=== PATIENT | male | born 1985 | race Caucasian/White ===

== ENCOUNTER 2017-03-06 05:45 | Day surgery (SDC) | payer OTHER ==
[~2017-03-06] VITALS: Ht 190.5 cm; Wt 106.8 kg
[2017-03-06] VITALS (7 sets, daily range): BP systolic 110–131; BP diastolic 54–82
[~2017-03-06 05:45] MED LIST: CelecoXIB (CeleBREX) 100 MG CAP PO ONE; GABA-279 PO; HYDR-3713 PO; KETO10TAB PO; LR 1,000 ML IV ONE; PERCOCET 5MG/325MG TAB PO ONE; PREGABALIN 75 MG CAP(LYRICA) PO ONE; SUMA100T2 PO; SUMA4INJ3 SC
[2017-03-06] MEDS ORDERED: CelecoXIB (CeleBREX) 100 MG CAP PO ONE ×2 (06:00→21:00)
[2017-03-06] MEDS ORDERED: PERCOCET 5MG/325MG TAB PO ONE (06:00)
[2017-03-06] MEDS ORDERED: PREGABALIN 75 MG CAP(LYRICA) PO ONE (06:00)
[2017-03-06] MEDS ORDERED: LR 1,000 ML IV SCH ×2 (06:00→10:15)
[2017-03-06] MEDS ORDERED: NAPR1TAB86 PO (06:27)
[2017-03-06] MEDS ORDERED: BUPIVACAINE/EPIN 0.25% 30 ML VIAL As Ordered ONE (07:11)
[2017-03-06] MEDS ORDERED: THROMBIN SOLN 20,000 UNITS KIT As Ordered ONE (07:11)
[2017-03-06] MEDS ORDERED: BACITRACIN PWD 50,000 UNITS VIAL As Ordered ONE (07:11)
[2017-03-06] MEDS ORDERED: ROCURONIUM BROMIDE 50 MG/5 ML VIAL As Ordered ONE (08:01)
[2017-03-06] MEDS ORDERED: ONDANSETRON 4MG/2ML VIAL (J2405) As Ordered ONE (08:01)
[2017-03-06] MEDS ORDERED: MIDAZOLAM INJ 2 MG/2 ML VIAL (J2250) As Ordered ONE (08:01)
[2017-03-06] MEDS ORDERED: fentaNYL 250 MCG/5 ML INJECTION (J3010) As Ordered ONE (08:01)
[2017-03-06] MEDS ORDERED: PROPOFOL 200 MG/20 ML VIAL As Ordered ONE ×2 (08:01→09:26)
[2017-03-06] MEDS ORDERED: LIDOCAINE 2% INJ 100 MG/5 ML SDV (FOR ANES.) As Ordered ONE (08:01)
[2017-03-06] MEDS ORDERED: dexameTHASONE 4 MG/ML 1ML VIAL (J1100) As Ordered ONE (08:01)
[2017-03-06] MEDS ORDERED: NEOSTIGMINE 1MG/ML 5 ML SYRINGE (J2710) As Ordered ONE (08:11)
[2017-03-06] MEDS ORDERED: GLYCOPYRROLATE INJ 0.2 MG/ML 2 ML VIAL As Ordered ONE (08:11)
[2017-03-06] MEDS ORDERED: PHENYLephrine HCL 500 MCG/5 ML (100MCG/ML) SYRINGE (J2370) As Ordered ONE (08:34)
--- NOTE | 2017-03-06 09:17 | REP ---
LUMBAR SPINE, ONE VIEW: HISTORY: Disc herniation. A single portable lateral radiograph was obtained. A metal probe is present overlying the neural arch at the L4-5 level. Signed by Guru Mcgowan MD 03/06/2017 01:18 P
[2017-03-06] MEDS ORDERED: HYDROmorphone HCL 1 MG/ML SYRINGE (J1170) IV PRN ×3 (10:15→12:00)
[2017-03-06] MEDS ORDERED: fentaNYL 100 MCG/2 ML INJECTION (J3010) IV PRN (10:15)
[2017-03-06] MEDS ORDERED: ONDANSETRON 4MG/2ML VIAL (J2405) IV PRN (10:15)
[2017-03-06] MEDS ORDERED: PERCOCET 5MG/325MG TAB PO PRN (10:15)
[2017-03-06] MEDS: PERCOCET 5MG/325MG TAB PO PRN ×3 (10:24→18:11)
[2017-03-06] MEDS ORDERED: D5W/LR 1,000 ML IV SCH (10:30)
[2017-03-06] MEDS ORDERED: CYCLOBENZAPRINE 10 MG TAB PO PRN (10:30)
[2017-03-06] MEDS ORDERED: PROMETHAZINE INJ 25 MG/ML VIAL (J2550) IV PRN (10:30)
--- NOTE | 2017-03-06 15:57 | RO ---
DATE OF PROCEDURE: 03/06/2017 PREOPERATIVE DIAGNOSIS: Right lower extremity radiculopathy secondary to large extruded disk at the L4-5 level. POSTOPERATIVE DIAGNOSIS: Right lower extremity radiculopathy secondary to large extruded disk at the L4-5 level. Pain. PROCEDURE PERFORMED: Right L4-5 microdiskectomy. SURGEON: Ciaran Weber MD SECTION LEADER SCREEN PRINTING: Chalino Landrum PA-C ANESTHESIA: General. ESTIMATED BLOOD LOSS: Less than 50 ml. replaced with crystalloid. COMPLICATIONS: None. INTRAOPERATIVE FINDINGS: Include very large extruded herniated nucleus pulposus. INDICATIONS: The patient has discomfort radiating down the right lower extremity for a number of months that has not be getting better with conservative management. The patient has elected for operative intervention, verifies that he still has discomfort in the preoperative holding area. Consent reviewed in detail with the patient who declines any potential blood transfusions. He wants to proceed with surgery which is proposed, a microdiskectomy. We had a alyssa discussion of risks including, but not limited to pain, failure, infection, bleeding, blood loss, need for more surgery and other issues. I did also explain to the patient that he has a transitional motion segment at the lumbosacral junction, which could make the procedure more difficult and also could make recovery from the procedure less successful. The patient understands and wants to proceed. OPERATIVE COURSE: Identified in the holding area, site and side verified, brought to the operating room. General endotracheal anesthesia was administered. He was rolled to the Gab frame for exposure of the lumbar spine and positioned with the knees slightly flexed and axillary rolls were utilized. Next, I stood on the patient's right side, Mr. Landrum stood on the patient's left side in the capacity of assistant teacher. Time-out was accomplished. He was sterilely prepped, draped in usual fashion. Line of the incision was outlined with a marking pen, infiltrated with 0.25% Marcaine with epinephrine by Mr. Landrum. I utilized loupe magnification for the first portion of procedure. The incision was made with a #10 blade knife, developed down through skin and subcuticular tissues. Crossing of the posterior lumbar fascia was appreciated at the L4-5 level and a sharp knife was utilized to open the posterior lumbar fascia at this level. Hot knife was utilized to dissect down to the interspace at L4-5. The lamina of L4 was identified and I drilled a divot into the lamina of L4, placed A Duncan-Naveed probe in the lamina and we obtained a cross-table lateral x-ray to verify our level. The level was verified to be at the lamina of 4-5. The level verified to be in the lamina of L4 at the L4-5 interspace. Next, once this was accomplished and further exposure of the L4-5 level was accomplished, I then placed the shadow line retractor with 55 mm blade. Next, my loupe magnification was then exchanged for glasses and we brought in the sterilely draped operative microscope, which facilitated further participation by Mr. Landrum and safe use of the high-speed bur. Next, I utilized the high-speed bur to implement a right unilateral laminotomy of the L4 level extending superiorly to the bare area of L4, preserving most of the L4-5 facet complex and extending inferiorly into the top of the S1 level. Next, Mr. Landrum assisted with some retraction and I utilized 4-0 curved Moni curettes to elevate ligamentum flavum as well as pituitaries and Kerrisons to remove ligamentum flavum from the midline. I decompressed the lateral recess. Mr. Landrum utilized a Sherrie suction retractor to retract the traversing L5 nerve root medially and I utilized a Duncan-Naveed and bipolar cautery to expose disk annulus. There seems to be a large disk subannular or subligamentous extrusion to the right of midline that appeared to be soft. There were hypertrophied epidurals. I utilized bipolar cautery to coagulate epidurals. I opened the PLL/annulus with an #11 blade knife and I retrieved disk material. The patient had a large amount of extruded disk material, which was removed in several portions. Next, once this was accomplished I explored around the annulus and PLL with a Duncan-Naveed retractor to make sure there was no additional retrievable extruded disk material. Bipolar cautery was utilized for hemostasis as well as thrombin Gelfoam. All thrombin Gelfoam was removed at the conclusion of the case. Irrigation was accomplished including irrigation with saline solution as well as concentrated bacitracin. Next, all retractors were removed, posterior lumbar fascia was reapproximated with interrupted stitch, dermis with interrupted and running stitch by Mr. Landrum. Steri-Strips applied. Dressing applied. The patient was then log-rolled to hospital bed, extubated, moved to recovery room in good condition. Both myself and Mr. Landrum were present for the case. I was present for all beard portions of the procedure.
[2017-03-07 06:00] VITALS: BP 105/63
[2017-03-07 08:40] VITALS: BP 139/83
[2017-03-07] MEDS: PERCOCET 5MG/325MG TAB PO PRN (11:25)
== END 2017-03-07 11:45 | disposition home or self-care (01) ==
LOC: M SDC 05:45 → M MS5PR 11:05 → M SDC 03-07 11:45
PROVIDERS: ATTEND Orthopaedic Surgery
DX: M51.16 Intervertebral disc disorders with radiculopathy, lumbar region (principal); G43.909 Migraine, unspecified, not intractable, without status migrainosus; R06.83 Snoring; G47.9 Sleep disorder, unspecified; Z79.899 Other long term (current) drug therapy; Z87.442 Personal history of urinary calculi